=== PATIENT | female | born 1965 | race Caucasian/White ===

== ENCOUNTER 2018-10-15 08:36 | Observation (INO) ==
[2018-10-15] MEDS ORDERED: Sodium Chlor 0.9% Inj 500 ML IV.SIG ONE (09:02)
--- NOTE | 2018-10-15 09:03 | ED ---
HPI General Chief Complaint: Chest Pain Stated Complaint: Cardiac Time Seen by Provider: 10/15/18 09:02 Source: patient and family Mode of arrival: ambulatory Limitations: no limitations History of Present Illness HPI narrative: 53-year-old female patient with history of previous PE currently on Eliquis presents to the ER today after having flown in from [place] last night, currently complaining of substernal chest discomfort, shortness of breath , palpitations, nausea. Patient's states that they had been drinking some alcohol last night, has not had anything to eat since 3 PM yesterday. Her blood sugar was 49. Modifying Factors: None Associated Signs & Symptoms: Palpitations, chest discomfort, shortness of breath Risk Factors: History of PE, long plane ride Related Data Home Medications Medication Instructions Recorded Confirmed apixaban [Eliquis] 5 mg PO BID 10/15/18 10/15/18 Allergies Allergy/AdvReac Type Severity Reaction Status Date / Time No Known Allergies Allergy Verified 10/15/18 08:57 Review of Systems ROS: all other systems reviewed are negative [facility] Medical History Medical History Pulmonary embolism (Acute) Surgical History Surgical History Hx of tonsillectomy (Acute) Social History Social History Substance History: No History of Abuse Smoking Status: Never smoker How Often Do You Have a Drink Containing Alcohol: 2 to 4 times a month Recent Travel in [facility] within the Last 8 Weeks: No Recent Out of Country Travel within the Last 8 Weeks: No Immunization History Tetanus Immunization: Unsure Exam Narrative Exam Narrative: GENERAL: Well-developed middle-aged female patient currently and in moderate distress. Awake and oriented x3. SKIN: Focused skin assessment warm/dry. HEAD: Atraumatic. Normocephalic. EYES: Pupils equal and round. No scleral icterus. No injection or drainage. ENT: No nasal bleeding or discharge. Mucous membranes pink and moist. NECK: Trachea midline. No JVD. Supple. CARDIOVASCULAR: Regular rate and rhythm. No murmur appreciated. RESPIRATORY: No accessory muscle use. Clear to auscultation. Breath sounds equal bilaterally. GASTROINTESTINAL: Abdomen soft, non-tender, nondistended. Hepatic and splenic margins not palpable. MUSCULOSKELETAL: No obvious deformities. No clubbing. No cyanosis. No edema. NEUROLOGICAL: Awake and alert. No obvious cranial nerve deficits. Motor grossly within normal limits. Normal speech. PSYCHIATRIC: Appropriate mood and affect; insight and judgment normal. Course Initial Documented Vital Signs Pulse Rate 63 10/15/18 08:39 Respiratory Rate 16 10/15/18 08:39 Blood Pressure 93/53 L 10/15/18 08:39 Pulse Oximetry 100 10/15/18 08:39 Last Documented Vital Signs Temperature 96.1 F L 10/15/18 10:20 Pulse Rate 60 10/15/18 10:20 Respiratory Rate 16 10/15/18 10:20 Blood Pressure 99/60 L 10/15/18 10:20 Pulse Oximetry 100 10/15/18 10:20 Medical Decision Making MDM Narrative Medical decision making narrative: Lab work shows hypoglycemia and patient was given juice and some ER. Her lab work returned showing significant leukocytosis. However, she is afebrile. Her UA and chest x-ray was unremarkable. D-dimer is negative and at this point P is not suspected. She was given several IV fluid boluses and given p.o. potassium as well for low potassium on lab work. Lactate is fairly elevated as well. I suspect that some of this could be secondary to a dehydration ketosis versus alcoholic related ketosis. My plan at this point however would be to admit her for further treatment. Case is discussed with Dr. Henderson for admission. Medical Screen Exam Complete: Yes Emergency Medical Condition: Yes Differential Diagnosis Differential Diagnosis: ACS versus dysrhythmias versus gastritis versus hypoglycemia versus electrolyte abnormalities versus pancreatitis versus PE Lab Data Lab results reviewed: Yes I reviewed the patient's lab results. Result diagrams: 10/15/18 09:05 10/15/18 09:05 Lab Results 10/15/18 10/15/18 10/15/18 Range/Units 09:05 09:05 09:05 WBC 18.4 H (4.0-11.0) th/mm3 RBC 4.03 (4.00-5.30) mil/mm3 Hgb 12.8 (11.6-15.3) gm/dL Hct 37.8 (35.0-46.0) % MCV 93.8 (80.0-100.0) fL MCH 31.8 (27.0-34.0) pg MCHC 34.0 (32.0-36.0) % RDW 12.6 (11.6-17.2) % Plt Count 296 (150-450) th/mm3 MPV 8.1 (7.0-11.0) fL Neut % (Auto) 81.0 H (16.0-70.0) % Lymph % (Auto) 16.0 (9.0-44.0) % Person % (Auto) 2.4 (0.0-8.0) % Eos % (Auto) 0.3 (0.0-4.0) % Baso % (Auto) 0.3 (0.0-2.0) % Neut # (Auto) 14.9 H (1.8-7.7) th/mm3 Lymph # (Auto) 3.0 (1.0-4.8) th/mm3 Person # (Auto) 0.4 (0.0-0.9) th/mm3 Eos # (Auto) 0.1 (0.0-0.4) th/mm3 Baso # (Auto) 0.1 (0.0-0.2) th/mm3 WBC Differential . Differential Comment Auto diff final PT 10.4 (9.8-11.6) sec INR 1.0 Ratio APTT 23.3 L (23.4-31.7) sec D-Dimer Quant (PE/DVT) 0.20 (0.00-0.50) mg/L FEU Sodium 141 (136-145) meq/L Potassium 2.8 L* (3.5-5.1) meq/L Chloride 106 (98-107) meq/L Carbon Dioxide 17.9 L (21.0-32.0) meq/L Anion Gap 17 H (5-15) meq/L BUN 16 (7-18) mg/dL Creatinine 0.90 (0.50-1.00) mg/dL Estimated GFR 66 L (>89) mL/min POC Glucose (68-110) mg/dl Random Glucose 45 L* (74-106) mg/dL Lactic Acid (0.4-2.0) mmol/L Calcium 8.7 (8.5-10.1) mg/dL Total Bilirubin 0.4 (0.2-1.0) mg/dL AST 39 H (15-37) U/L ALT 33 (10-53) U/L Alkaline Phosphatase 64 (45-117) U/L Troponin I Less than 0.02 L (0.02-0.05) ng/mL Total Protein 6.9 (6.4-8.2) g/dL Albumin 4.1 (3.4-5.0) g/dL Lipase 83 (73-393) U/L Urine Color (Yellw/Straw) Urine Clarity (Clear) Urine pH (5.0-8.5) Ur Specific [place] (1.002-1.035) Urine Protein (Neg-Trace) mg/dL Urine Glucose (UA) (Negative) mg/dL Urine Ketones (Negative) mg/dL Urine Occult Blood (Negative) Urine Nitrate (Negative) Urine Bilirubin (Negative) Urine Urobilinogen (Less than 2) mg/dL Ur Leukocyte Esterase (Negative) Urine RBC (0-3) /hpf Urine WBC (0-5) /hpf Ur Squamous Epith Cells (0-5) /hpf Hyaline Casts (0-3) /lpf Micro UA Comment Ur Microscopic Review Urine Culture Comments Serum Alcohol 76 H (0-5) mg/dL 10/15/18 10/15/18 10/15/18 Range/Units 09:09 09:38 10:13 WBC (4.0-11.0) th/mm3 RBC (4.00-5.30) mil/mm3 Hgb (11.6-15.3) gm/dL Hct (35.0-46.0) % MCV (80.0-100.0) fL MCH (27.0-34.0) pg MCHC (32.0-36.0) % RDW (11.6-17.2) % Plt Count (150-450) th/mm3 MPV (7.0-11.0) fL Neut % (Auto) (16.0-70.0) % Lymph % (Auto) (9.0-44.0) % Person % (Auto) (0.0-8.0) % Eos % (Auto) (0.0-4.0) % Baso % (Auto) (0.0-2.0) % Neut # (Auto) (1.8-7.7) th/mm3 Lymph # (Auto) (1.0-4.8) th/mm3 Person # (Auto) (0.0-0.9) th/mm3 Eos # (Auto) (0.0-0.4) th/mm3 Baso # (Auto) (0.0-0.2) th/mm3 WBC Differential Differential Comment PT (9.8-11.6) sec INR Ratio APTT (23.4-31.7) sec D-Dimer Quant (PE/DVT) (0.00-0.50) mg/L FEU Sodium (136-145) meq/L Potassium (3.5-5.1) meq/L Chloride (98-107) meq/L Carbon Dioxide (21.0-32.0) meq/L Anion Gap (5-15) meq/L BUN (7-18) mg/dL Creatinine (0.50-1.00) mg/dL Estimated GFR (>89) mL/min POC Glucose 50 L 94 (68-110) mg/dl Random Glucose (74-106) mg/dL Lactic Acid 5.7 H* (0.4-2.0) mmol/L Calcium (8.5-10.1) mg/dL Total Bilirubin (0.2-1.0) mg/dL AST (15-37) U/L ALT (10-53) U/L Alkaline Phosphatase (45-117) U/L Troponin I (0.02-0.05) ng/mL Total Protein (6.4-8.2) g/dL Albumin (3.4-5.0) g/dL Lipase (73-393) U/L Urine Color (Yellw/Straw) Urine Clarity (Clear) Urine pH (5.0-8.5) Ur Specific [place] (1.002-1.035) Urine Protein (Neg-Trace) mg/dL Urine Glucose (UA) (Negative) mg/dL Urine Ketones (Negative) mg/dL Urine Occult Blood (Negative) Urine Nitrate (Negative) Urine Bilirubin (Negative) Urine Urobilinogen (Less than 2) mg/dL Ur Leukocyte Esterase (Negative) Urine RBC (0-3) /hpf Urine WBC (0-5) /hpf Ur Squamous Epith Cells (0-5) /hpf Hyaline Casts (0-3) /lpf Micro UA Comment Ur Microscopic Review Urine Culture Comments Serum Alcohol (0-5) mg/dL 10/15/18 10/15/18 Range/Units 10:24 10:30 WBC (4.0-11.0) th/mm3 RBC (4.00-5.30) mil/mm3 Hgb (11.6-15.3) gm/dL Hct (35.0-46.0) % MCV (80.0-100.0) fL MCH (27.0-34.0) pg MCHC (32.0-36.0) % RDW (11.6-17.2) % Plt Count (150-450) th/mm3 MPV (7.0-11.0) fL Neut % (Auto) (16.0-70.0) % Lymph % (Auto) (9.0-44.0) % Person % (Auto) (0.0-8.0) % Eos % (Auto) (0.0-4.0) % Baso % (Auto) (0.0-2.0) % Neut # (Auto) (1.8-7.7) th/mm3 Lymph # (Auto) (1.0-4.8) th/mm3 Person # (Auto) (0.0-0.9) th/mm3 Eos # (Auto) (0.0-0.4) th/mm3 Baso # (Auto) (0.0-0.2) th/mm3 WBC Differential Differential Comment PT (9.8-11.6) sec INR Ratio APTT (23.4-31.7) sec D-Dimer Quant (PE/DVT) (0.00-0.50) mg/L FEU Sodium (136-145) meq/L Potassium (3.5-5.1) meq/L Chloride (98-107) meq/L Carbon Dioxide (21.0-32.0) meq/L Anion Gap (5-15) meq/L BUN (7-18) mg/dL Creatinine (0.50-1.00) mg/dL Estimated GFR (>89) mL/min POC Glucose 143 H (68-110) mg/dl Random Glucose (74-106) mg/dL Lactic Acid (0.4-2.0) mmol/L Calcium (8.5-10.1) mg/dL Total Bilirubin (0.2-1.0) mg/dL AST (15-37) U/L ALT (10-53) U/L Alkaline Phosphatase (45-117) U/L Troponin I (0.02-0.05) ng/mL Total Protein (6.4-8.2) g/dL Albumin (3.4-5.0) g/dL Lipase (73-393) U/L Urine Color Yellow (Yellw/Straw) Urine Clarity Clear (Clear) Urine pH 5.0 (5.0-8.5) Ur Specific [place] 1.014 (1.002-1.035) Urine Protein Negative (Neg-Trace) mg/dL Urine Glucose (UA) Negative (Negative) mg/dL Urine Ketones 80 or greater H (Negative) mg/dL Urine Occult Blood Negative (Negative) Urine Nitrate Negative (Negative) Urine Bilirubin Negative (Negative) Urine Urobilinogen Less than 2 (Less than 2) mg/dL Ur Leukocyte Esterase Trace H (Negative) Urine RBC 1 (0-3) /hpf Urine WBC 1 (0-5) /hpf Ur Squamous Epith Cells 1 (0-5) /hpf Hyaline Casts 14 (0-3) /lpf Micro UA Comment Culture not ind Ur Microscopic Review Not Reportable Urine Culture Comments Culture not ind Serum Alcohol (0-5) mg/dL Imaging Data Attestation: I personally reviewed and interpreted this imaging study as follows : Radiologist's impression: Chest X-Ray 10/15/18 09:02 CONCLUSION: Negative examination. Discharge Plan Discharge Disposition Patient Disposition: ED Admit(ED Internal Use Only) Discharge Condition Condition: Stable Discharge Order Discharge Orders: ED Use Only Admit Order (Routine); Ordered 10/15/18 Ordered By: Katherine Garcia Discharge Details Anticipated Discharge Date: 10/15/18 Diagnosis: Hypokalemia, Dehydration, Hypoglycemia Physicians Team ED Provider: Katherine Garcia Primary Care Provider: NON STAFF,PROVIDER Rxs /Orders / Referrals /Forms Prescriptions: No Action apixaban [Eliquis] 5 mg Tablet 5 mg PO BID RF: 0 Discharge Instructions Patient Printed Instructions: Chest Pain (ED) Status ED Status: Admitted Patient
[2018-10-15 09:21] LABS: Baso # (Auto) 0.1 th/mm3 (0.0-0.2); Baso % (Auto) 0.3 % (0.0-2.0); Eos # (Auto) 0.1 th/mm3 (0.0-0.4); Eos % (Auto) 0.3 % (0.0-4.0); Hematocrit 37.8 % (35.0-46.0); Hemoglobin 12.8 gm/dL (11.6-15.3); Mean Corpuscular Hemoglobin 31.8 pg (27.0-34.0); Mean Corpuscular Volume 93.8 fL (80.0-100.0); Mean Platelet Volume 8.1 fL (7.0-11.0); Mono # (Auto) 0.4 th/mm3 (0.0-0.9); Mono % (Auto) 2.4 % (0.0-8.0); Neut # (Auto) 14.9 th/mm3 (1.8-7.7); Platelet Count 296 th/mm3 (150-450); Red Blood Count 4.03 mil/mm3 (4.00-5.30); Red Cell Distribution Width 12.6 % (11.6-17.2); White Blood Count 18.4 th/mm3 (4.0-11.0)
[2018-10-15 09:35] LABS: Activated Partial Thrombo Time 23.3 sec (23.4-31.7); Prothrombin Time 10.4 sec (9.8-11.6)
[2018-10-15 09:36] LABS: D-Dimer 0.2 mg/L FEU (0.00-0.50)
[2018-10-15 09:49] LABS: Alanine Aminotransferase 33 U/L (10-53); Albumin 4.1 g/dL (3.4-5.0); Alkaline Phosphatase 64 U/L (45-117); Anion Gap 17 meq/L (5-15); Aspartate Aminotransferase 39 U/L (15-37); Blood Urea Nitrogen 16 mg/dL (7-18); Calcium 8.7 mg/dL (8.5-10.1); Carbon Dioxide 17.9 meq/L (21.0-32.0); Chloride 106 meq/L (98-107); Glomerular Filtration Rate 66 mL/min (>89); Lipase 83 U/L (73-393); Sodium 141 meq/L (136-145); Total Protein 6.9 g/dL (6.4-8.2)
[2018-10-15 09:55] LABS: Potassium 2.8 meq/L (3.5-5.1)
--- NOTE | 2018-10-15 09:55 | XR ---
EXAM DATE: 10/15/2018 9:49 AM EST AGE/SEX: 53 years / Female INDICATIONS: Chest pain. CLINICAL DATA: This is the patient's initial encounter. Patient reports that signs and symptoms have been present for 1 day and indicates a pain score of 5/10. MEDICAL/SURGICAL HISTORY: None. None. COMPARISON: No prior exams available for comparison. FINDINGS: A single AP view of the chest demonstrates the lungs to be symmetrically aerated without evidence of mass, infiltrate or effusion. The cardiomediastinal contours are unremarkable. Osseous structures a re intact. CONCLUSION: Negative examination. Electronically signed by: Antonina Alexander MD Board Certified Radiologist 10/15/2018 9:53 AM JANET T
[2018-10-15 09:56] LABS: Alcohol 76 mg/dL (0-5); Glucose,Random 45 mg/dL (74-106)
[2018-10-15] MEDS ORDERED: Potassium Chloride 25 MEQ Effervescent Tablet PO ONE (10:02)
[2018-10-15 10:52] LABS: Bilirubin,Urine Negative (Negative); Clarity,Urine Clear (Clear); Color,Urine Yellow (Yellw/Straw); Glucose,Urine (UA) Negative (Negative); Hyaline Casts,Urine 14 /lpf (0-3); Leukocyte Esterase,Urine Trace (Negative); Nitrite,Urine Negative (Negative); Specific Gravity,Urine 1.014 (1.002-1.035); Squamous Epithelial Cell,Urine 1 /hpf (0-5)
[2018-10-15] MEDS ORDERED: Sod Chloride 0.9% Inj 1,000 ML IV.SIG SCH (11:00)
[2018-10-15 12:23] LABS: Baso % (Auto) 0.1 % (0.0-2.0); Hematocrit 32.4 % (35.0-46.0); Hemoglobin 11.4 gm/dL (11.6-15.3); Lymph # (Auto) 0.6 th/mm3 (1.0-4.8); Lymph % (Auto) 7.6 % (9.0-44.0); Mean Corpuscular HGB Conc 35.2 % (32.0-36.0); Mean Corpuscular Hemoglobin 33.1 pg (27.0-34.0); Mean Corpuscular Volume 94.2 fL (80.0-100.0); Mono # (Auto) 0.2 th/mm3 (0.0-0.9); Mono % (Auto) 3.1 % (0.0-8.0); Neut # (Auto) 7.1 th/mm3 (1.8-7.7); Neut % (Auto) 89.2 % (16.0-70.0); Platelet Count 196 th/mm3 (150-450); Red Blood Count 3.44 mil/mm3 (4.00-5.30); Red Cell Distribution Width 12.4 % (11.6-17.2)
[2018-10-15 13:00] LABS: Albumin 3.3 g/dL (3.4-5.0); Calcium 7.2 mg/dL (8.5-10.1); Carbon Dioxide 21.5 meq/L (21.0-32.0); Potassium 4.4 meq/L (3.5-5.1); Total Protein 5.8 g/dL (6.4-8.2)
[2018-10-15] MEDS ORDERED: Bisacodyl 10 MG Supp RECTAL PRN (13:19)
[2018-10-15] MEDS ORDERED: Acetaminophen 325 MG Tablet PO PRN (13:19)
--- NOTE | 2018-10-15 13:35 | P.HPIM ---
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 She traveled 2 days ago via airplane from [place] to [place]. Patient states she had lunch yesterday and had drinks later on in the day. Patient developed shortness of breath, palpitations, chest discomfort and nausea after drinking and presented to the ED. At time of arrival in ED patients blood glucose level was 49. She drank a couple of orange juices with improvement in her blood sugar to greater than 100. Patient's lactic acid level was elevated at 5.7. Blood cultures have been collected. Her serum potassium was low and 2.8. This was replaced and repeat serum potassium level is improved and 4.4. ETOH level was 76. Serum lipase level was 83 and unremarkable. Chest x- ray shows a negative examination. Urinalysis is negative for a urinary tract infection but her urine ketones were 80 or greater. Patient's d-dimer level was 0.20 and no further imaging was ordered. Patients white blood cell count is 18. Patient received fluid boluses in ED. At time of evaluation by hospitalist team patient denies chest pain, shortness of breath, palpitations or lower extremity pain/edema. She appears comfortable. Patient has been admitted under observation care. Review of Systems Review of Systems: all other systems reviewed are negative (except as documented all other systems reviewed and unremarkable. ) PMFSH History History Provided By: Patient Medical History Medical History Pulmonary embolism (Acute) Surgical History Surgical History Hx of tonsillectomy (Acute) Family History Family History Father Clotting disorder Mother Cancer Social History Social History Substance History: No History of Abuse Smoking Status: Never smoker How Often Do You Have a Drink Containing Alcohol: 2 to 4 times a month Recent Travel in [facility] within the Last 8 Weeks: No Recent Out of Country Travel within the Last 8 Weeks: No Immunization History Tetanus Immunization: Unsure Medications and Allergies Allergies Allergy/AdvReac Type Severity Reaction Status Date / Time No Known Allergies Allergy Verified 10/15/18 08:57 Home Medications Medication Instructions Recorded Confirmed Type apixaban [Eliquis] 5 mg PO BID 10/15/18 10/15/18 History Active Medications: Active Medications Acetaminophen (Tylenol) 650 mg PO Q4H PRN PRN Reason: Temp > 100.4 Al Hydroxide/Mg Hydroxide (Milk Of Magnesia Liq) 30 ml PO Q12H PRN PRN Reason: Mild Constipation Apixaban (Eliquis) 5 mg PO BID FLO Bisacodyl (Dulcolax Supp) 10 mg RECTAL DAILY PRN PRN Reason: SEVERE CONSITIPATION Sodium Chloride (Ns Inj) 1,000 mls @ 100 mls/hr IV.CONT .Q10H FLO Lactulose (Lactulose Liq) 30 ml PO DAILY PRN PRN Reason: SEVERE CONSITIPATION Ondansetron HCl (Zofran Inj) 4 mg IV.PUSH Q6H PRN PRN Reason: NAUSEA OR VOMITING Ondansetron HCl (Zofran Inj) 4 mg IV.PUSH Q6H PRN PRN Reason: NAUSEA Sennosides (Senokot) 17.2 mg PO Q12H PRN PRN Reason: Moderate Constipation Sodium Chloride (Ns Flush) 2 ml IV.FLUSH BID FLO Sodium Chloride (Ns Flush) 2 ml IV.FLUSH PRN PRN PRN Reason: FLUSH AFTER USING IV ACCESS Physical Exam Vital signs: Last Vital Signs Temp 97.9 F 10/15/18 12:18 Pulse 64 10/15/18 12:18 Resp 18 10/15/18 12:18 BP 101/60 10/15/18 12:18 Pulse Ox 98 10/15/18 12:18 Intake & Output 10/13/18 10/14/18 10/15/18 10/16/18 06:59 06:59 06:59 06:59 Intake Total 1500 / 1500 Balance 1500 / 1500 Weight 58.513 kg Constitutional no acute distress and cooperative Routine HEENT Exam Head: Present normocephalic Eye: Present EOMI and PERRL Routine Neck Exam Present supple and full ROM; Absent JVD and tracheal deviation Routine Chest/Breast/Axilla Exam Chest wall: Absent tenderness Routine Respiratory Exam Present CTA bilaterally; Absent accessory muscle use and wheezes Routine Cardiovascular Exam Present RRR, S1 and S2; Absent murmur Routine Abdominal Exam Present soft; Absent tenderness and distended Routine Extremities Exam Present full ROM and pulses intact; Absent cyanosis and edema Routine Skin Exam Present intact; Absent cyanosis Routine Neurological Exam Present alert, oriented X3 and CN II-XII intact Routine Psychiatric Exam Present normal affect, good insight and good judgment Results Labs CBC & Chem 7: 10/15/18 12:10 10/15/18 12:10 Imaging Impressions Chest X-Ray 10/15/18 09:02 CONCLUSION: Negative examination. Caprini VTE Risk Assessment Caprini VTE Risk Assessment: Moderate/High Risk (score >= 2) Caprini Risk Assessment Model: Point Value = 1 Point Value = 2 Point Value = 3 Point Value = 5 Age 41-60 Minor surgery BMI > 25 kg/m2 Swollen legs Varicose veins or History of unexplained or recurrent spontaneous Oral contraceptives or hormone replacement Sepsis (< 1 month) Serious lung disease, including pneumonia (< 1 month) Abnormal pulmonary function Acute myocardial infarction Congestive heart failure (< 1 month) History of inflammatory bowel disease Medical patient at bed rest Age 61-74 Arthroscopic surgery Major open surgery (> 45 min) Laparoscopic surgery (> 45 min) Malignancy Confined to bed (> 72 hours) Immobilizing plaster cast Central venous access Age >= 75 History of VTE Family history of VTE Factor V Leiden Prothrombin [id number] Lupus anticoagulant Anticardiolipin antibodies Elevated serum homocysteine Heparin-induced thrombocytopenia Other congenital or acquired thrombophilia Stroke (< 1 month) Elective arthroplasty Hip, pelvis, or leg fracture Acute spinal cord injury (< 1 month) Prophylaxis Regimen: Total Risk Factor Score Risk Level Prophylaxis Regimen 0-1 Low Early ambulation 2 Moderate Order ONE of the following: *Sequential Compression Device (SCD) *Heparin 5000 units SQ BID 3-4 Higher Order ONE of the following medications: *Heparin 5000 units SQ TID *Enoxaparin/Lovenox 40 mg SQ daily (WT < 150 kg, CrCl > 30 mL/min) *Enoxaparin/Lovenox 30 mg SQ daily (WT < 150 kg, CrCl > 10-29 mL/min) *Enoxaparin/Lovenox 30 mg SQ BID (WT < 150 kg, CrCl > 30 mL/min) AND/OR *Sequential Compression Device (SCD) 5 or more Highest Order ONE of the following medications: *Heparin 5000 units SQ TID (Preferred with Epidurals) *Enoxaparin/Lovenox 40 mg SQ daily (WT < 150 kg, CrCl > 30 mL/min) *Enoxaparin/Lovenox 30 mg SQ daily (WT < 150 kg, CrCl > 10-29 mL/min) *Enoxaparin/Lovenox 30 mg SQ BID (WT < 150 kg, CrCl > 30 mL/min) AND *Sequential Compression Device (SCD) Assessment and Plan Plan Patient is a pleasant 53 year old with a past medical history significant for unprovoked PE 12/2016 currently on lifelong anticoagulation on Eliquis. She presented to ED after drinking yesterday evening and subsequently developing chest discomfort, palpitations, shortness of breath and nausea. Probable alcohol induced ketoacidosis vs fasting -OBS care -urine ketones > 80, ETOH level 76 -IV fluids -pt resumed PO intake Lactic acidosis -lactic acid 5.7 ati time of admission -improved s/p IV fluid administration to 3.1, continue to monitor reflex lactic acid level -continue IV fluids -no e/o infection, UA and CXR with no acute findings Hypokalemia -K 2.8 -repleted in ED and repeat K 4.4 -check MG level and replete if indicated Hypoglycemia -BS 49 at time of admission -now > 100 s/p PO orange juice intake -resume PO intake Elevated AST level, likely secondary to alcohol consumption -monitor Leukocytosis, likely reactive -no e/o infection -resolved s/p IV fluid administration Nausea -Zofran PRN Shortness of breath/ Palpitations -resolved -d-dimer 0.20 MDM: self Code: Full GI ppx: regular diet DVT ppx: on Eliquis PO BID Code Status: Full Discussed Condition With: patient Discharge Planning: Home once medically optimized
[2018-10-15] MEDS: Sod Chloride 0.9% Inj 1,000 ML IV.CONT SCH ×2 (13:48→22:12)
[2018-10-15] MEDS ORDERED: Senna/Docusate Sodium 8.6/50 MG Tablet PO SCH (21:00)
[2018-10-16] MEDS: Sod Chloride 0.9% Inj 1,000 ML IV.CONT SCH ×2 (07:47→09:27)
[2018-10-16 09:17] LABS: Baso % (Auto) 0.4 % (0.0-2.0); Eos # (Auto) 0.1 th/mm3 (0.0-0.4); Eos % (Auto) 1.4 % (0.0-4.0); Hemoglobin 11.4 gm/dL (11.6-15.3); Lymph # (Auto) 2.3 th/mm3 (1.0-4.8); Lymph % (Auto) 34.4 % (9.0-44.0); Mean Corpuscular HGB Conc 34.4 % (32.0-36.0); Mean Corpuscular Hemoglobin 32.2 pg (27.0-34.0); Mean Corpuscular Volume 93.4 fL (80.0-100.0); Mean Platelet Volume 8.6 fL (7.0-11.0); Mono # (Auto) 0.3 th/mm3 (0.0-0.9); Neut % (Auto) 58.8 % (16.0-70.0); Platelet Count 217 th/mm3 (150-450); Red Blood Count 3.53 mil/mm3 (4.00-5.30); Red Cell Distribution Width 12.7 % (11.6-17.2); White Blood Count 6.8 th/mm3 (4.0-11.0)
[2018-10-16 09:40] LABS: Calcium 8.2 mg/dL (8.5-10.1); Carbon Dioxide 26.3 meq/L (21.0-32.0); Potassium 4.1 meq/L (3.5-5.1)
--- NOTE | 2018-10-16 12:23 | ECG ---
Date Performed: 10/15/2018 Time Performed: 08:51:50 PTAGE: 53 years EKG: SINUS BRADYCARDIA PROLONGED QT INTERVAL ABNORMAL ECG NO PREVIOUS TRACING DOCTOR: Mike Kamara Interpretating Date/Time 10/16/2018 12:20:49
--- NOTE | 2018-10-16 12:32 | P.PNIM ---
Subjective Interval history: Patient says she feels much better this morning. She is requesting to go home. Physical Exam Vital signs: Vital Signs 10/15/18 16:00 10/15/18 20:00 10/16/18 00:00 Temperature 97.8 F 98.4 F 99.2 F Pulse Rate 74 68 66 Respiratory Rate 18 18 18 Blood Pressure 97/54 L 99/54 L 91/55 L Pulse Oximetry 100 97 96 10/16/18 04:00 10/16/18 08:00 10/16/18 10:20 Temperature 98.2 F 97.8 F Pulse Rate 64 56 L Respiratory Rate 18 18 Blood Pressure 98/54 L 127/72 Pulse Oximetry 97 96 97 Intake & Output 10/15/18 10/16/18 10/16/18 18:59 06:59 18:59 Intake Total 1900 / 1900 1320 / 1320 1000 / 1000 Balance 1900 / 1900 1320 / 1320 1000 / 1000 Weight 63.1 kg 59.9 kg Intake: IV 1500 / 1500 1000 / 1000 1000 / 1000 NS Inj 1,000 ML @ 100 mls/hr IV 1000 / 1000 1000 / 1000 .CONT .Q10H FLO Rx#:[id number] NS Inj 1,000 ML @ 1000 mls/hr 1000 / 1000 IV.SIG BOLUS FLO Rx#:[id number] NS Inj 500 ML @ 500 mls/hr IV. 500 / 500 SIG ONCE ONE Rx#:[id number] Oral 320 / 320 Other 400 / 400 Other: # Urine Diapers 3 Date of Last Bowel Movement 10/13/18 10/13/18 10/15/18 # Bowel Movements 1 Weight On Admission 63.1 kg Narrative: General patient in no acute distress HEENT extraocular movements are intact, clear oropharyngeal mucosa, no JVD Cardiovascular S1-S2 audible, RRR, no murmurs rubs or gallops Respiratory clear to auscultation bilaterally Abdomen soft, nontender, nondistended, normal bowel sounds Extremities no edema 2+ distal pulses in bilateral upper and lower extremities Neuro cranial nerves II through XII intact Results - Labs CBC & Chem 7: 10/16/18 07:11 10/16/18 07:11 Laboratory Results - last 24 hr 10/15/18 10/15/18 10/15/18 12:10 12:10 12:10 WBC RBC Hgb Hct MCV MCH MCHC RDW Plt Count MPV Neut % (Auto) Lymph % (Auto) [place] % (Auto) Eos % (Auto) Baso % (Auto) Neut # (Auto) Lymph # (Auto) [place] # (Auto) Eos # (Auto) Baso # (Auto) WBC Differential Differential Comment Sodium 141 Potassium 4.4 D Chloride 111 H Carbon Dioxide 21.5 Anion Gap 9 BUN 15 Creatinine 0.76 Estimated GFR 80 L Random Glucose 166 H D Lactic Acid 3.1 H Calcium 7.2 L* D Calcium Adj for Albumin 7.8 L Magnesium 1.8 Total Bilirubin 0.4 AST 39 H ALT 33 Alkaline Phosphatase 54 Total Protein 5.8 L D Albumin 3.3 L D 10/15/18 10/16/18 10/16/18 17:21 07:11 07:11 WBC 6.8 RBC 3.53 L Hgb 11.4 L Hct 33.0 L MCV 93.4 MCH 32.2 MCHC 34.4 RDW 12.7 Plt Count 217 MPV 8.6 Neut % (Auto) 58.8 Lymph % (Auto) 34.4 [place] % (Auto) 5.0 Eos % (Auto) 1.4 Baso % (Auto) 0.4 Neut # (Auto) 4.0 Lymph # (Auto) 2.3 [place] # (Auto) 0.3 Eos # (Auto) 0.1 Baso # (Auto) 0.0 WBC Differential . Differential Comment Auto diff final Sodium 145 Potassium 4.1 Chloride 114 H Carbon Dioxide 26.3 Anion Gap 5 BUN 11 Creatinine 0.82 Estimated GFR 73 L Random Glucose 78 Lactic Acid 2.1 H Calcium 8.2 L D Calcium Adj for Albumin Magnesium Total Bilirubin AST ALT Alkaline Phosphatase Total Protein Albumin Microbiology 10/15/18 10:15 Blood - Peripheral Aerobic Blood Culture - Preliminary No growth in 1 day 10/15/18 10:15 Blood - Peripheral Anaerobic Blood Culture - Preliminary No growth in 1 day 10/15/18 10:00 Blood - Peripheral Aerobic Blood Culture - Preliminary No growth in 1 day 10/15/18 10:00 Blood - Peripheral Anaerobic Blood Culture - Preliminary No growth in 1 day Assessment and Plan - Plan This patient is a 53-year-old female diagnosis of unprovoked pulmonary embolus in December 2016 currently on anticoagulation with Eliquis. The patient presented to our emergency department after drinking alcohol heavily yesterday evening and presented with tachycardia as well as shortness of breath. Is found to be in alcohol-induced ketosis. 1. Alcohol-induced ketosis 2. Lactic acidosis likely secondary to #1 and dehydration. 3. Electrolyte abnormality likely secondary to #1 and #2 4. Hypoglycemia likely secondary to #1 The patient presented with the symptoms mentioned above. Lactate was elevated significantly, the patient was tachycardic, patient also appeared to be dry on physical examination. The patient was started on aggressive IV fluid titration, her elect lites were monitored closely and replaced as needed. Lactate has down trended significantly, labs today look within normal limits. The patient's hypoglycemia also has resolved. She is tolerating a p.o. diet without any planes currently. Patient is now stable and will be discharged patient was advised to avoid alcohol. The patient understands what happened to her and says that she will avoid drinking alcohol. 5. History of PE Continue antiplatelets with Eliquis. Patient will be discharged home.
== END 2018-10-16 13:27 | disposition home or self-care (01) ==
LOC: NEPE 08:36 → NEDA 08:36 → N04 14:04
PROVIDERS: ADMIT Hospitalist; ATTEND Hospitalist
DX: R11.0 Nausea; R82.4 Acetonuria; Z86.711 Personal history of pulmonary embolism; E86.0 Dehydration; E87.2 Acidosis; E87.6 Hypokalemia; E16.2 Hypoglycemia, unspecified; R74.0 Nonspecific elevation of levels of transaminase and lactic acid dehydrogenase [LDH]; R07.89 Other chest pain; D72.829 Elevated white blood cell count, unspecified; R00.2 Palpitations; Z79.01 Long term (current) use of anticoagulants